=== PATIENT | male | born 1985 | race Two or more races ===

== ENCOUNTER 2022-08-14 03:19 | Inpatient (IN) | payer OTHER ==
[~2022-08-14] VITALS: Ht 177.8 cm; Wt 130.6 kg
[2022-08-14] MEDS ORDERED: KETOROLAC TROMETH 60MG/2ML VIAL IM ONE (04:00)
[2022-08-14 04:22] LABS: Urine Bacteria NONE SEEN /hpf (None Seen); Urine Blood TRACE /uL (Negative); Urine Specific Gravity 1.019 (1.001-1.035); Urine WBC 1 /hpf (0 - 3)
[2022-08-14] MEDS ORDERED: cefTRIAXone SOD 1,000 MG VL IV ONE (05:00)
[2022-08-14 05:28] LABS: Basophils # (auto) 0.1 10 ^3/uL (0-0.2); Basophils % (auto) 0.6 % (0.0-2.0); Eosinophils # (auto) 0.2 10 ^3/uL (0-0.8); Eosinophils % (auto) 1.5 % (0.0-7.0); Hematocrit 49.7 % (41.0-53.0); Hemoglobin 16.9 g/dL (13.5-17.5); Lymphocytes # (auto) 1.2 10 ^3/uL (0.4-5.4); Mean Corpuscular Hemoglobin 29.8 pg (28.0-32.0); Mean Corpuscular Volume 87.6 fL (80.0-100.0); Monocytes # (auto) 0.9 10 ^3/uL (0-1.3); Monocytes % (auto) 7.6 % (0.0-12.0); Neutrophils # (auto) 9.4 10 ^3/uL (1.6-8.6); Neutrophils % (auto) 80.3 % (37.0-80.0); Nucleated Red Blood Cells % 0.1 %; Red Blood Cells 5.67 10^6/uL (4.5-5.90); Red Cell Distribution Width 13.6 % (11.8-14.3); White Blood Cell 11.7 10^3/uL (4.4-10.8)
[2022-08-14 05:46] LABS: Potassium 4.2 mmol/L (3.5-5.1)
[2022-08-14 05:52] LABS: Albumin 3.9 g/dL (3.4-5.0); BUN/Creatinine Ratio 14.1; Bilirubin, Total 0.4 mg/dL (0.2-1.0); Calcium 8.3 mg/dL (8.5-10.1); Total Protein 7.4 g/dL (6.4-8.2)
[2022-08-14] MEDS ORDERED: TEMAZEPAM 15 MG CAP PO PRN (06:15)
[2022-08-14] MEDS ORDERED: ACETAMINOPHEN 325 MG TAB PO PRN (06:15)
[2022-08-14] MEDS ORDERED: HYDROcodone-ACET 5/325MG TAB PO PRN (06:15)
[2022-08-14] MEDS ORDERED: ONDANSETRON HCL 4 MG/2 ML VIAL IV PRN (06:15)
[2022-08-14] MEDS ORDERED: LISINOPRIL 10 MG TAB PO SCH (10:00)
[2022-08-14] MEDS: HCTZ 25 MG TAB PO SCH (10:21)
[2022-08-14] MEDS: PANTOPRAZOLE 40 MG TAB PO SCH (10:21)
[2022-08-14] MEDS: cefTRIAXone 1GM/50ML D5W 50 ML IV SCH (10:22)
[2022-08-14] MEDS ORDERED: NIFEdipine ER 30 MG TAB PO ONE (12:00)
[2022-08-14] MEDS ORDERED: MANNITOL FTV 25% 12.5 GM/50 ML 50 ML IV ONE (12:15)
[2022-08-14] MEDS: MORPHINE SULFATE INJ 2 MG/ml SYRG IV PRN ×2 (13:36→18:23)
[2022-08-14 15:00] LABS: INR 0.96 (0.9-1.15); Partial Thromboplastin Time 30.1 sec (24.6-33.4)
[2022-08-14] MEDS: cloNIDine HCL 0.1 MG TAB PO PRN (15:15)
[2022-08-14] MEDS ORDERED: ERGOCALCIFEROL 50,000 UNIT(1.25MG) CAP PO SCH (15:30)
[2022-08-14] MEDS ORDERED: KETOROLAC TROMETH 30 MG/ML 1ML VIAL IV ONE (20:00)
[2022-08-14 22:00] VITALS: BP 112/67
[2022-08-15] VITALS (7 sets, daily range): BP systolic 108–140; BP diastolic 57–93
[2022-08-15] MEDS ORDERED: LOSA-69 PO (01:03)
[2022-08-15 05:34] LABS: Basophils # (auto) 0 10 ^3/uL (0-0.2); Basophils % (auto) 0.4 % (0.0-2.0); Eosinophils # (auto) 0.4 10 ^3/uL (0-0.8); Eosinophils % (auto) 4.2 % (0.0-7.0); Hematocrit 49.3 % (41.0-53.0); Hemoglobin 16.4 g/dL (13.5-17.5); Lymphocytes # (auto) 2.2 10 ^3/uL (0.4-5.4); Lymphocytes % (auto) 23.6 % (10.0-50.0); Mean Corpuscular Hemoglobin 29.5 pg (28.0-32.0); Mean Corpuscular Hgb Conc. 33.2 g/dL (32.0-36.0); Mean Corpuscular Volume 88.9 fL (80.0-100.0); Monocytes # (auto) 0.9 10 ^3/uL (0-1.3); Monocytes % (auto) 9.9 % (0.0-12.0); Neutrophils # (auto) 5.7 10 ^3/uL (1.6-8.6); Neutrophils % (auto) 61.9 % (37.0-80.0); Nucleated Red Blood Cells % 0.1 %; Red Blood Cells 5.55 10^6/uL (4.5-5.90); Red Cell Distribution Width 13.7 % (11.8-14.3); White Blood Cell 9.1 10^3/uL (4.4-10.8)
[2022-08-15 05:35] LABS: BUN/Creatinine Ratio 15.7; Calcium 8.7 mg/dL (8.5-10.1); Potassium 3.9 mmol/L (3.5-5.1)
[2022-08-15] MEDS ORDERED: TAMSULOSIN HYDROCHLORIDE 0.4 MG CAP PO ONE (08:15)
[2022-08-15] MEDS: PANTOPRAZOLE 40 MG TAB PO SCH (09:04)
[2022-08-15] MEDS: HCTZ 25 MG TAB PO SCH (09:04)
[2022-08-15] MEDS: NIFEdipine ER 30 MG TAB PO SCH (09:04)
[2022-08-15] MEDS: cefTRIAXone 1GM/50ML D5W 50 ML IV SCH (09:04)
[2022-08-15] MEDS: MORPHINE SULFATE INJ 2 MG/ml SYRG IV PRN (13:08)
[2022-08-15] MEDS: TAMSULOSIN HYDROCHLORIDE 0.4 MG CAP PO SCH (18:52)
[2022-08-15] MEDS ORDERED: KETOROLAC TROMETH 30 MG/ML 1ML VIAL IV ONE (23:00)
[2022-08-16 05:01] VITALS: BP 131/83
[2022-08-16 09:00] VITALS: BP 149/85
[2022-08-16] MEDS: cefTRIAXone 1GM/50ML D5W 50 ML IV SCH (09:03)
[2022-08-16] MEDS: HCTZ 25 MG TAB PO SCH (09:04)
[2022-08-16] MEDS: NIFEdipine ER 30 MG TAB PO SCH (09:04)
[2022-08-16] MEDS: PANTOPRAZOLE 40 MG TAB PO SCH (09:04)
[2022-08-16 13:00] VITALS: BP 139/88
[2022-08-16] MEDS ORDERED: MIDAZOLAM HCL 2MG/2ML 2ml VIAL (1mg/ml) ONE (13:39)
[2022-08-16] MEDS ORDERED: IODIXANOL 320MG/ML 100ML BTL IV ONE (13:41)
[2022-08-16] MEDS ORDERED: LIDOCAINE 2%HCL (LOCAL ANESTH.) INJ 10ml MDV ONE (13:41)
[2022-08-16] MEDS ORDERED: fentaNYL CITRATE 100 MCG/2 ML VL ONE (13:42)
[2022-08-16] MEDS ORDERED: ceFAZolin 1GM VL ONE (13:54)
[2022-08-16 17:00] VITALS: BP 139/88
[2022-08-16] MEDS: TAMSULOSIN HYDROCHLORIDE 0.4 MG CAP PO SCH (18:16)
[2022-08-16] MEDS: HYDROcodone-ACET 10/325MG TAB PO PRN (20:37)
[2022-08-16 22:00] VITALS: BP 146/88
[2022-08-17] MEDS: cloNIDine HCL 0.1 MG TAB PO PRN (04:40)
[2022-08-17 05:00] VITALS: BP 161/107
[2022-08-17 06:12] LABS: BUN/Creatinine Ratio 17.7; Calcium 9.1 mg/dL (8.5-10.1); Potassium 4.4 mmol/L (3.5-5.1)
[2022-08-17 09:00] VITALS: BP 150/98
[2022-08-17] MEDS: cefTRIAXone 1GM/50ML D5W 50 ML IV SCH (09:29)
[2022-08-17] MEDS: PANTOPRAZOLE 40 MG TAB PO SCH (09:29)
[2022-08-17] MEDS: NIFEdipine ER 30 MG TAB PO SCH (09:29)
[2022-08-17] MEDS: HCTZ 25 MG TAB PO SCH (09:30)
[2022-08-17] MEDS: HYDROcodone-ACET 10/325MG TAB PO PRN ×2 (09:30→16:58)
[2022-08-17 13:00] VITALS: BP 135/84
[2022-08-17] MEDS ORDERED: NIFE90TA49 PO (13:51)
[2022-08-17] MEDS ORDERED: ERGO1CAP23 PO (13:51)
[2022-08-17] MEDS ORDERED: TAM04C PO (13:51)
[2022-08-17] MEDS ORDERED: CEPH-510 PO (13:51)
[2022-08-17 16:32] VITALS: BP 150/98
[2022-08-17 16:54] VITALS: BP 132/84
== END 2022-08-17 17:30 | disposition home or self-care (01) | DRG 465 ==
LOC: ER 03:19 → OVERFLOW 06:06 → WEST WING 21:42
PROVIDERS: ADMIT Nurse Practitioner; ATTEND Internal Medicine
PROC: 0T9130Z Drainage of Left Kidney with Drainage Device, Percutaneous Approach (ICD-10-PCS; principal; 2022-08-16)
PROC: BT42ZZZ Ultrasonography of Left Kidney (ICD-10-PCS; 2022-08-16)
PROC: BT121ZZ Fluoroscopy of Left Kidney using Low Osmolar Contrast (ICD-10-PCS; 2022-08-16)
DX: N13.2 Hydronephrosis with renal and ureteral calculous obstruction (principal); N17.9 Acute kidney failure, unspecified; D72.829 Elevated white blood cell count, unspecified; I10 Essential (primary) hypertension; E66.01 Morbid (severe) obesity due to excess calories; R31.0 Gross hematuria; E55.9 Vitamin D deficiency, unspecified; Z20.822 Contact with and (suspected) exposure to COVID-19; R65.10 Systemic inflammatory response syndrome (SIRS) of non-infectious origin without acute organ dysfunction; Z83.3 Family history of diabetes mellitus; Z82.49 Family history of ischemic heart disease and other diseases of the circulatory system; Z68.41 Body mass index [BMI] 40.0-44.9, adult
CPT/HCPCS: 36415; 50430; 74176; 74425; 76775; 76942; 80048; 80053; 81001; 82306; 83036; 84443; 85025; 85610; 85730; 87086; 87426; 96365; 96366; 96367; 96372; 96375; 99152; C1729; G0378; J0690; J0696; J1885; J2001; J2250; Q9967